=== PATIENT | male | born 1985 | race American Indian/Alaskan Native ===

== ENCOUNTER 2017-03-17 01:09 | Emergency (ER) | payer MEDICAID ==
[2017-03-17 04:05] VITALS: BP 123/72
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
[2017-03-17] MEDS ORDERED: PERCOCET 5/325 PO ONE (04:36)
== END 2017-03-17 06:05 | disposition home or self-care (01) ==
LOC: ED 01:09
DX: K02.9 Dental caries, unspecified (principal); R51 Headache; F17.200 Nicotine dependence, unspecified, uncomplicated
CPT/HCPCS: 99282

== ENCOUNTER 2017-03-21 09:18 | Emergency (ER) | payer MEDICAID ==
[2017-03-21 10:00] VITALS: BP 114/72
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
[2017-03-21] MEDS ORDERED: NORCO 5/325 PO ONE (10:50)
== END 2017-03-21 11:33 | disposition home or self-care (01) ==
LOC: ED 09:18
DX: R51 Headache (principal); K08.89 Other specified disorders of teeth and supporting structures; K21.9 Gastro-esophageal reflux disease without esophagitis; F17.200 Nicotine dependence, unspecified, uncomplicated
CPT/HCPCS: 99282